=== PATIENT | male | born 1995 | race Caucasian/White ===

== ENCOUNTER 2022-07-31 12:35 | Emergency (ER) | payer OTHER, SELFPAY ==
--- NOTE | ~2022-07-31 | XR_ITS ---
EXAMINATION: XR CHEST CLINICAL INFORMATION: Left anterior chest pain dizziness 50 days COMPARISON: None available. TECHNIQUE: 2 views of the chest were obtained. FINDINGS: No significant abnormality is noted involving the heart, lungs, mediastinum, bony thorax or soft tissues. XR/XR chest 2V IMPRESSION: Unremarkable chest examination.
--- NOTE | 2022-07-31 12:38 | ECG_ITS ---
Test Reason : CHEST PAIN Blood Pressure : / mmHG Vent. Rate : 072 BPM Atrial Rate : 072 BPM P-R Int : 118 ms QRS Dur : 086 ms QT Int : 332 ms P-R-T Axes : 043 077 050 degrees QTc Int : 363 ms Normal sinus rhythm with sinus arrhythmia Normal ECG No previous ECGs available Referred By: Generic ED Physician Electronically Signed By:Rober Jesus
--- NOTE | 2022-07-31 12:56 | ED_ITS ---
HPI - General Adult General Chief complaint: Dizziness <RAJESH Sanchez Last Filed: 07/31/22 12:57> Stated complaint: chest pain from [facility] <RAJESH Sanchez Last Filed: 07/31/22 12:57> Time Seen by Provider: 07/31/22 13:25 <RAJESH Sanchez Last Filed: 07/31/22 12:57> Source: patient <RAJESH Bundy Last Filed: 07/31/22 14:47> Mode of arrival: ambulatory <RAJESH Bundy Last Filed: 07/31/22 14:47> Limitations: no limitations <RAJESH Bundy Last Filed: 07/31/22 14:47> History of Present Illness HPI narrative: 27-year-old otherwise healthy male currently in the [facility] [place] 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 He just recently moved here from [place] on an assignment. He states he has been working excessive hours, not eating or sleeping well. He states starting Wednesday he started have bouts of dizziness and nausea. He felt like he was going to pass out. He admits to not eating breakfast, not getting much sleep. Wednesday night he states he slept maybe 2 or 3 hours before he had to go back to work. Throughout the week he has had recurrent episodes of dizziness and nausea. No chest pain, shortness of breath, headaches, actual syncopal episodes. <RAJESH Bundy Last Filed: 07/31/22 14:47> MD complaint: Dizziness and nausea <RAJESH Bundy Last Filed: 07/31/22 14:47> Onset (ago): day(s) <RAJESH Bundy Last Filed: 07/31/22 14:47> Severity: moderate <RAJESH Bundy Last Filed: 07/31/22 14:47> Pain Consistency: intermittent <RAJESH Bundy Last Filed: 07/31/22 14:47> Relieving factors: none <RAJESH Bundy Last Filed: 07/31/22 14:47> Exacerbating factors: none <RAJESH Bundy Last Filed: 07/31/22 14:47> Associated symptoms: confusion <RAJESH Bundy - Last Filed: 07/31/22 14:47> Treatments prior to arrival: none <RAJESH Bundy - Last Filed: 07/31/22 14:47> Related Data Allergies/adverse reactions: Allergies Allergy/AdvReac Type Severity Reaction Status Date / Time No Known Allergies Allergy Verified 07/31/22 12:57 <RAJESH Sanchez - Last Filed: 07/31/22 12:57> Review of Systems Review of Systems: Yes all other systems are reviewed and are negative <RAJESH Bundy - Last Filed: 07/31/22 14:47> [facility] Social History Social History: Social History Advance Directives: No Advance Directives Information Provided: Yes <RAJESH Sanchez - Last Filed: 07/31/22 12:57> Physical Exam ED Vital Signs: Vital Signs - 24 hr 07/31/22 12:58 07/31/22 14:03 07/31/22 14:03 Temperature 97.9 F Pulse Rate 74 68 70 Respiratory Rate 16 13 Blood Pressure 122/84 112/73 112/73 Pulse Oximetry 99 97 Oxygen Delivery Method Room Air Room Air 07/31/22 14:05 07/31/22 14:06 Temperature Pulse Rate 69 79 Respiratory Rate Blood Pressure 113/79 112/79 Pulse Oximetry Oxygen Delivery Method BMI result Body Mass Index 24.0 <RAJESH Sanchez - Last Filed: 07/31/22 12:57> Vital Signs - 24 hr 07/31/22 12:58 07/31/22 14:03 07/31/22 14:03 Temperature 97.9 F Pulse Rate 74 68 70 Respiratory Rate 16 13 Blood Pressure 122/84 112/73 112/73 Pulse Oximetry 99 97 Oxygen Delivery Method Room Air Room Air 07/31/22 14:05 07/31/22 14:06 Temperature Pulse Rate 69 79 Respiratory Rate Blood Pressure 113/79 112/79 Pulse Oximetry Oxygen Delivery Method BMI result Body Mass Index 24.0 <RAJESH Bundy Last Filed: 07/31/22 14:47> Appearance: Alert. Oriented X3. No acute distress. Head: normocephalic, atraumatic. Eyes: Pupils equal, round and reactive to light. ENT: Pharynx normal. No tonsillar swelling or exudate. Neck: Normal inspection. Neck supple. CVS: Normal heart rate and rhythm. Pulses normal. Respiratory: No respiratory distress. Breath sounds normal. Abdomen: Soft and nontender. +BS x4 Skin: Skin warm and dry. Normal skin color. Normal skin turgor. No rashes. Extremities: No lower extremity edema. No joint swelling. Neuro/psych: Oriented X 3. No motor deficit. No sensory deficit. CN II-XII intact. Normal speech and cognition. <RAJESH Bundy Last Filed: 07/31/22 14:47> Course Course Course Narrative: RME performed by Cinthya Levine PA-C. Patient is a 27 year old assigned male at presenting to the emergency department with chest pain and intermittent dizziness. Labs, imaging, and swab ordered. Patient placed back in the waiting room pending room availability and results. <RAJESH Sanchez Last Filed: 07/31/22 12:57> Medical Decision Making Medical Decision Making [facility] Narrative: 27-year-old male presents to the ER for evaluation of intermittent dizziness and nausea. Has episodes of presyncope but no actual syncopal events. He admits to poor p.o. intake, hydration, sleep habits. His workup here is unremarkable. His vital signs remained stable. Doubt any cardiac arrhythmia. His EKG was unremarkable. Patient was counseled on the importance of adequate hydration, oral intake, sleep. Comfortable discharge home with supportive care. He will work on his healthy habits. Stable for discharge. <RAJESH Bundy Last Filed: 07/31/22 14:47> Differential Diagnosis Differential Diagnoses: The differential diagnosis associated with the presentation includes <RAJESH Bundy Last Filed: 07/31/22 14:47> dizziness, vertigo, dehydration, anemia, electrolyte abnormality, orthosta tic hypotension, sleep deprivation, stress reaction, vertigo, doubt posterior circulation stroke or cardiac arrhythmia <RAJESH Bundy Last Filed: 07/31/22 14:47> Lab Data [facility] Lab Attestation statement: I reviewed the patient's lab results. <RAJESH Bundy Last Filed: 07/31/22 14:47> Result Diagrams: 07/31/22 13:09 07/31/22 13:09 <RAJESH Sanchez - Last Filed: 07/31/22 12:57> Labs: Lab Results 07/31/22 07/31/22 07/31/22 Range/Units 13:09 13:09 13:09 WBC 4.3 L (4.8-10.8) X10*3/uL RBC 4.62 (4.60-5.80) X10*6/uL Hgb 14.5 (14.0-18.0) g/dl Hct 42.3 (42.0-52.0) % MCV 91.6 (80.0-98.0) fL MCH 31.4 (27.0-33.0) pg MCHC 34.3 (31.0-36.0) g/dl RDW 11.9 (11.0-16.0) % Plt Count 239 (160-400) X10*3/uL MPV 8.9 L (9.4-12.4) fL Immature Gran % (Auto) 0.2 (0.0-0.4) % Neut % (Auto) 56.2 (45-73) % Lymph % (Auto) 35.2 (20-40) % Larue % (Auto) 7.7 (2-11) % Eos % (Auto) 0.2 (0-4) % Baso % (Auto) 0.5 (0-2) % Lymph # (Auto) 1.5 (1.2-4.9) X10*3/uL Larue # (Auto) 0.3 (0.1-1.2) X10*3/uL Eos # (Auto) 0.0 (0.0-0.4) X10*3/uL Baso # (Auto) 0.0 (0.0-0.2) X10*3/uL Abs Immat Gran (auto) 0.01 (0.00-0.03) X10*3/uL Absolute Neuts (auto) 2.4 (2.0-8.3) x10*3/uL Absolute Nucleated RBC 0.000 (0.0-0.012) X10*3/uL Nucleated RBC % (auto) 0.0 (0.0-0.2) /100WBC Sodium 140 (135-145) mmol/L Potassium 4.6 (3.3-5.1) mmol/L Chloride 106 (96-108) mmol/L Carbon Dioxide 29 (22-29) mmol/L Anion Gap 10 L (12-20) BUN 12 (9-16) mg/dL Creatinine 0.92 (0.5-1.4) mg/dL Estim Creat Clear Calc 129.5 Estimated GFR > 60 Random Glucose 85 (60-115) mg/dL Calcium 9.5 (8.4-10.2) mg/dL Magnesium 2.2 (1.6-2.6) mg/dL Total Bilirubin 0.9 (0.0-1.0) mg/dL AST 15 (5-37) U/L ALT 16 (0-40) U/L Alkaline Phosphatase 86 (39-117) U/L Troponin I High Sens < 2.7 (<3.5-35.0) ng/L Total Protein 6.9 (6.5-8.0) g/dL Albumin 4.4 (3.5-5.0) g/dL Influenza Type A (PCR) (Negative) Influenza Type B (PCR) (Negative) RSV RNA Qual (PCR) (Negative) SARS-CoV-2 RNA (RT-PCR) (Negative) 07/31/22 Range/Units 13:09 WBC (4.8-10.8) X10*3/uL RBC (4.60-5.80) X10*6/uL Hgb (14.0-18.0) g/dl Hct (42.0-52.0) % MCV (80.0-98.0) fL MCH (27.0-33.0) pg MCHC (31.0-36.0) g/dl RDW (11.0-16.0) % Plt Count (160-400) X10*3/uL MPV (9.4-12.4) fL Immature Gran % (Auto) (0.0-0.4) % Neut % (Auto) (45-73) % Lymph % (Auto) (20-40) % Larue % (Auto) (2-11) % Eos % (Auto) (0-4) % Baso % (Auto) (0-2) % Lymph # (Auto) (1.2-4.9) X10*3/uL Larue # (Auto) (0.1-1.2) X10*3/uL Eos # (Auto) (0.0-0.4) X10*3/uL Baso # (Auto) (0.0-0.2) X10*3/uL Abs Immat Gran (auto) (0.00-0.03) X10*3/uL Absolute Neuts (auto) (2.0-8.3) x10*3/uL Absolute Nucleated RBC (0.0-0.012) X10*3/uL Nucleated RBC % (auto) (0.0-0.2) /100WBC Sodium (135-145) mmol/L Potassium (3.3-5.1) mmol/L Chloride (96-108) mmol/L Carbon Dioxide (22-29) mmol/L Anion Gap (12-20) BUN (9-16) mg/dL Creatinine (0.5-1.4) mg/dL Estim Creat Clear Calc Estimated GFR Random Glucose (60-115) mg/dL Calcium (8.4-10.2) mg/dL Magnesium (1.6-2.6) mg/dL Total Bilirubin (0.0-1.0) mg/dL AST (5-37) U/L ALT (0-40) U/L Alkaline Phosphatase (39-117) U/L Troponin I High Sens (<3.5-35.0) ng/L Total Protein (6.5-8.0) g/dL Albumin (3.5-5.0) g/dL Influenza Type A (PCR) NEGATIVE (Negative) Influenza Type B (PCR) NEGATIVE (Negative) RSV RNA Qual (PCR) NEGATIVE (Negative) SARS-CoV-2 RNA (RT-PCR) NEGATIVE (Negative) <RAJESH Sanchez - Last Filed: 07/31/22 12:57> Lab Results 07/31/22 07/31/22 07/31/22 Range/Units 13:09 13:09 13:09 WBC 4.3 L (4.8-10.8) X10*3/uL RBC 4.62 (4.60-5.80) X10*6/uL Hgb 14.5 (14.0-18.0) g/dl Hct 42.3 (42.0-52.0) % MCV 91.6 (80.0-98.0) fL MCH 31.4 (27.0-33.0) pg MCHC 34.3 (31.0-36.0) g/dl RDW 11.9 (11.0-16.0) % Plt Count 239 (160-400) X10*3/uL MPV 8.9 L (9.4-12.4) fL Immature Gran % (Auto) 0.2 (0.0-0.4) % Neut % (Auto) 56.2 (45-73) % Lymph % (Auto) 35.2 (20-40) % Larue % (Auto) 7.7 (2-11) % Eos % (Auto) 0.2 (0-4) % Baso % (Auto) 0.5 (0-2) % Lymph # (Auto) 1.5 (1.2-4.9) X10*3/uL Larue # (Auto) 0.3 (0.1-1.2) X10*3/uL Eos # (Auto) 0.0 (0.0-0.4) X10*3/uL Baso # (Auto) 0.0 (0.0-0.2) X10*3/uL Abs Immat Gran (auto) 0.01 (0.00-0.03) X10*3/uL Absolute Neuts (auto) 2.4 (2.0-8.3) x10*3/uL Absolute Nucleated RBC 0.000 (0.0-0.012) X10*3/uL Nucleated RBC % (auto) 0.0 (0.0-0.2) /100WBC Sodium 140 (135-145) mmol/L Potassium 4.6 (3.3-5.1) mmol/L Chloride 106 (96-108) mmol/L Carbon Dioxide 29 (22-29) mmol/L Anion Gap 10 L (12-20) BUN 12 (9-16) mg/dL Creatinine 0.92 (0.5-1.4) mg/dL Estim Creat Clear Calc 129.5 Estimated GFR > 60 Random Glucose 85 (60-115) mg/dL Calcium 9.5 (8.4-10.2) mg/dL Magnesium 2.2 (1.6-2.6) mg/dL Total Bilirubin 0.9 (0.0-1.0) mg/dL AST 15 (5-37) U/L ALT 16 (0-40) U/L Alkaline Phosphatase 86 (39-117) U/L Troponin I High Sens < 2.7 (<3.5-35.0) ng/L Total Protein 6.9 (6.5-8.0) g/dL Albumin 4.4 (3.5-5.0) g/dL Influenza Type A (PCR) (Negative) Influenza Type B (PCR) (Negative) RSV RNA Qual (PCR) (Negative) SARS-CoV-2 RNA (RT-PCR) (Negative) 07/31/22 Range/Units 13:09 WBC (4.8-10.8) X10*3/uL RBC (4.60-5.80) X10*6/uL Hgb (14.0-18.0) g/dl Hct (42.0-52.0) % MCV (80.0-98.0) fL MCH (27.0-33.0) pg MCHC (31.0-36.0) g/dl RDW (11.0-16.0) % Plt Count (160-400) X10*3/uL MPV (9.4-12.4) fL Immature Gran % (Auto) (0.0-0.4) % Neut % (Auto) (45-73) % Lymph % (Auto) (20-40) % Larue % (Auto) (2-11) % Eos % (Auto) (0-4) % Baso % (Auto) (0-2) % Lymph # (Auto) (1.2-4.9) X10*3/uL Larue # (Auto) (0.1-1.2) X10*3/uL Eos # (Auto) (0.0-0.4) X10*3/uL Baso # (Auto) (0.0-0.2) X10*3/uL Abs Immat Gran (auto) (0.00-0.03) X10*3/uL Absolute Neuts (auto) (2.0-8.3) x10*3/uL Absolute Nucleated RBC (0.0-0.012) X10*3/uL Nucleated RBC % (auto) (0.0-0.2) /100WBC Sodium (135-145) mmol/L Potassium (3.3-5.1) mmol/L Chloride (96-108) mmol/L Carbon Dioxide (22-29) mmol/L Anion Gap (12-20) BUN (9-16) mg/dL Creatinine (0.5-1.4) mg/dL Estim Creat Clear Calc Estimated GFR Random Glucose (60-115) mg/dL Calcium (8.4-10.2) mg/dL Magnesium (1.6-2.6) mg/dL Total Bilirubin (0.0-1.0) mg/dL AST (5-37) U/L ALT (0-40) U/L Alkaline Phosphatase (39-117) U/L Troponin I High Sens (<3.5-35.0) ng/L Total Protein (6.5-8.0) g/dL Albumin (3.5-5.0) g/dL Influenza Type A (PCR) NEGATIVE (Negative) Influenza Type B (PCR) NEGATIVE (Negative) RSV RNA Qual (PCR) NEGATIVE (Negative) SARS-CoV-2 RNA (RT-PCR) NEGATIVE (Negative) <RAJESH Bundy - Last Filed: 07/31/22 14:47> Independent Interpretation I performed an independent interpretation of an: EKG and Plain X-Ray <RAJESH Bundy Last Filed: 07/31/22 14:47> Interpretation: Normal sinus rhythm with sinus arrhythmia, ventricular rate 72 beats per minute, normal WI interval, normal QTC, no ST segment elevations or depressions. cxr is clear, agree w/ radiologist <RAJESH Bundy Last Filed: 07/31/22 14:47> Radiology Impression Discussion of test interpretation with radiology: I have reviewed the radiologist's reading. <RAJESH Bundy Last Filed: 07/31/22 14:47> Radiologist Impression: XR/XR chest 2V IMPRESSION: Unremarkable chest examination. <RAJESH Bundy Last Filed: 07/31/22 14:47> External Record Review External record reviewed: Outpatient record and Prior outpatient radiology <RAJESH Bundy Last Filed: 07/31/22 14:47> Critical Care Time Critical Care Time Critical Care Time: No <RAJESH Bundy - Last Filed: 07/31/22 14:47> Discharge Plan Discharge Clinical Impression: Dizziness <RAJESH Sanchez - Last Filed: 07/31/22 12:57> Patient Disposition: Home, Self-Care <RAJESH Sanchez - Last Filed: 07/31/22 12:57> Instructions: Dizziness (ED) <RAJESH Sanchez - Last Filed: 07/31/22 12:57> Additional Instructions: You lab workup today showed mild anemia which is stable from prior Your EKG was normal Rest and drink plenty of fluids Follow up with your doctor If you develop new or worsening symptoms call 911 or come back to the ER for fur ther evaluation. <RAJESH Sanchez - Last Filed: 07/31/22 12:57> Referrals: Zach Walker, APPLICATION SUPPORT DEVELOPER- [Primary Care Provider] - <RAJESH Sanchez - Last Filed: 07/31/22 12:57> Stand Alone Forms: Work/School Release <RAJESH Sanchez - Last Filed: 07/31/22 12:57> Interventions: ED Discharge Assessment Last Done: 07/31/22 14:32 <RAJESH Sanchez - Last Filed: 07/31/22 12:57> Discharge Date/Time: 07/31/22 14:33 <RAJESH Sanchez - Last Filed: 07/31/22 12:57>
[2022-07-31 12:58] VITALS: BP 122/84; PULSE 74; RESP 16; TEMP 36.6; O2SAT 99; BMI 24.0
[2022-07-31 13:13] LABS: MANUAL DIFF FLAG NO
[2022-07-31 13:16] LABS: Basophils Percent Auto 0.5 % (0-2); Eosinophils Percent Auto 0.2 % (0-4); Hematocrit 42.3 % (42.0-52.0); Hemoglobin 14.5 g/dl (14.0-18.0); Imm Gran Abs Auto 0.01 X10*3/uL (0.00-0.03); Imm Gran Pct Auto 0.2 % (0.0-0.4); Lymphocytes Absolute Auto 1.5 X10*3/uL (1.2-4.9); Lymphocytes Percent Auto 35.2 % (20-40); Mean Corpuscular HGB Conc 34.3 g/dl (31.0-36.0); Mean Corpuscular Hemoglobin 31.4 pg (27.0-33.0); Mean Corpuscular Volume 91.6 fL (80.0-98.0); Mean Platelet Volume 8.9 fL (9.4-12.4); Monocytes Absolute Auto 0.3 X10*3/uL (0.1-1.2); Monocytes Percent Auto 7.7 % (2-11); Neutrophils Absolute Auto 2.4 x10*3/uL (2.0-8.3); Neutrophils Percent Auto 56.2 % (45-73); Platelet Count 239 X10*3/uL (160-400); Red Blood Count 4.62 X10*6/uL (4.60-5.80); Red Cell Distribution Width 11.9 % (11.0-16.0); White Blood Count 4.3 X10*3/uL (4.8-10.8)
[2022-07-31 13:32] LABS: Alanine Aminotransferase 16 U/L (0-40); Albumin Level 4.4 g/dL (3.5-5.0); Alkaline Phosphatase 86 U/L (39-117); Anion Gap 10 (12-20); Aspartate Amino Transferase 15 U/L (5-37); Bilirubin Total 0.9 mg/dL (0.0-1.0); Blood Urea Nitrogen 12 mg/dL (9-16); Calcium 9.5 mg/dL (8.4-10.2); Carbon Dioxide 29 mmol/L (22-29); Chloride 106 mmol/L (96-108); Creatinine Clr Calc Pharmacy 129.5; Estimated Glomerular Filt Rate > 60; Glucose Random 85 mg/dL (60-115); Magnesium 2.2 mg/dL (1.6-2.6); Potassium 4.6 mmol/L (3.3-5.1); Sodium 140 mmol/L (135-145); Total Protein 6.9 g/dL (6.5-8.0)
[2022-07-31 13:37] LABS: Troponin-I High Sensitivity < 2.7 ng/L (<3.5-35.0)
[2022-07-31 13:55] LABS: Influenza A PCR NEGATIVE (Negative); Influenza B PCR NEGATIVE (Negative); Resp Syncy Virus RNA Qual PCR NEGATIVE (Negative); SARS COV2 PCR INHOUSE NEGATIVE (Negative)
[2022-07-31 14:03] VITALS: BP 112/73; PULSE 68; PULSE 70; RESP 13; O2SAT 97
[2022-07-31 14:05] VITALS: BP 113/79; PULSE 69
[2022-07-31 14:06] VITALS: BP 112/79; PULSE 79
== END 2022-07-31 14:33 | disposition home or self-care (01) ==
PROVIDERS: Physician Assistant Medical; Emergency Provider Emergency Medicine; PCP Nurse Practitioner Family
DX: R42 Dizziness and giddiness (principal); R07.89 Other chest pain; Z20.822 Contact with and (suspected) exposure to COVID-19; Z20.828 Contact with and (suspected) exposure to other viral communicable diseases; Z79.899 Other long term (current) drug therapy
CPT/HCPCS: 0241U; 36415; 71046; 80053; 83735; 84484; 85025; 93005; 99283; 99284

== ENCOUNTER 2022-11-03 15:43 | Outpatient (AMB) | payer OTHER, SELFPAY ==
[2022-11-03 15:58] VITALS: BP 112/74; PULSE 73; O2SAT 96; BMI 25.0
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
== END 2022-11-03 16:47 | disposition home or self-care (01) ==
PROVIDERS: PCP Nurse Practitioner Family; Visit Provider Nurse Practitioner Family
DX: M79.605 Pain in left leg (principal)
CPT/HCPCS: 99203